=== PATIENT | female | born 1970 | race Caucasian/White ===

== ENCOUNTER 2020-06-29 07:47 | Emergency (ER) | payer OTHER, SELFPAY ==
[2020-06-29] VITALS (25 sets, daily range): BP systolic 97–118; BP diastolic 48–87; PULSE 88–115; RESP 12–18; TEMP 37.2; O2SAT 95–100
--- NOTE | ~2020-06-29 | CT_ITS ---
EXAMINATION: CT abdomen pelvis w con EXAM DATE: 06/29/2020 10:06 INDICATION: Epigastric pain and vomiting. History gastric bypass, vomiting since. TECHNIQUE: Spiral CT of the abdomen and pelvis was performed following intravenous injection of 100 m L Omnipaque 350. Axial, coronal and sagittal images were reviewed. The dose-length product (DLP) fo r this examination was 264.80 mGy-cm. The exposure was tailored according to patient size (auto mA e xposure control), and iterative reconstruction (ASIR) was used as additional dose reduction technique . There is no prior study for comparison. FINDINGS: The liver, spleen, adrenal glands and pancreas are unremarkable. There are cholecystectomy clips. Portal and splenic veins are patent. Kidneys enhance symmetrically. There is no hydronephr osis. The uterus is unremarkable. The bladder is unremarkable. There is no retroperitoneal or pel jose lymphadenopathy. The appendix is normal. There are surgical changes from intact gastric bypass surgery with mild damaso a around the anastomosis site. Gastroesophageal junction, could be from vomiting given history provid ed. There is expected amount of colonic stool. No free intraperitoneal gas. The heart is normal in size. There are no pericardial or pleural effusions. Small regions of bilateral lower lobe groun dglass opacity consistent with acute infectious process. The bones are unremarkable. IMPRESSION: 1. Gastric pouch and gastroesophageal junction mild edema, probably from emesis. 2. Small regions right basilar predominant groundglass opacities likely acute infectious process, po ssibly COVID-19. I discussed these findings, possibility of COVID-19 with Manjinder Ferrell MD at 06/29/2020 10:31 CDT . Reviewed, dictated and finalized at location B. IMPRESSION: 1. Gastric pouch and gastroesophageal junction mild edema, probably from emesi s. 2. Small regions right basilar predominant groundglass opacities likely acute infectious process, possibly COVID-19. I discussed these findings, possibility of COVID-19 with Manjinder Ferrell MD at 06/29/2020 10:31 CDT.
--- NOTE | ~2020-06-29 | XR_ITS ---
EXAMINATION: XR chest 1V portable 06/29/2020 11:10 INDICATION: Basilar infiltrates. PROCEDURE: AP portable chest COMPARISON: No prior studies for comparison. FINDINGS: The lungs are clear. The cardiomediastinal silhouette is within normal limits. There are no pleural effusions. There is no pneumothorax suspected. IMPRESSION: 1: NO ACUTE CARDIOPULMONARY DISEASE. Reviewed, dictated and finalized at location A.
--- NOTE | 2020-06-29 08:04 | ED.NAVMDI ---
HPI - Nausea/Vomiting/Diarrhea General Chief complaint: Nausea/Vomiting/Diarrhea Stated complaint: vomiting Time Seen by Provider: 06/29/20 07:50 History of Present Illness HPI Narrative: Patient is a 49-year-old female who presents ER with nausea and vomiting. She reports she has had a history of intermittent vomiting since she had a gastric bypass surgery in the past. Reports she has been vomiting over the last week and that is forceful retching. No fevers or chills or sweats. No diarrhea. No blood in her stool. Occasionally she vomits she will have a tiny amount of blood that will come up at the end. Has discomfort in her abdomen. No bloating. No previous obstructions. Related Data Home Medications Medication Instructions Recorded Confirmed Calcium 600 + D(3) 1 tablet BYMOUTH DAILY 06/29/20 alprazolam 0.5 mg PO TID PRN 06/29/20 amitriptyline 75 mg PO HS 06/29/20 cholecalciferol (vitamin D3) PO MONTHLY 06/29/20 cyanocobalamin (vitamin B-12) 1,000 mcg IM 06/29/20 ibuprofen 800 mg PO Q6H PRN 06/29/20 Allergies Allergy/AdvReac Type Severity Reaction Status Date / Time Penicillins Allergy Mild Rash Verified 06/29/20 08:10 Sulfa (Sulfonamide Allergy Mild Swelling Verified 06/29/20 08:10 Antibiotics) of Lip/Tongue/Throat vancomycin Allergy Swelling Verified 06/29/20 08:11 of Lip/Tongue/Throat Review of Systems Review of Systems: All systems reviewed & are unremarkable except as noted in HPI and below Constitutional: Constitutional: Denies chills, Denies fever(s) and Denies weakness ENT: Denies nasal congestion and Denies sore throat Cardiovascular: Cardiovascular: Denies chest pain and Denies radiating jaw, neck or arm pain Respiratory: Respiratory: Denies cough, Denies dyspnea and Denies wheezing Gastrointestinal: Gastrointestinal: Reports abdominal pain, Denies bloating, Denies diarrhea, Reports nausea and Reports vomiting PMFSH Past Medical History Medical History (Updated 06/29/20 @ 12:26 by Manjinder Ferrell MD) Chronic anemia Surgical History Surgical History (Updated 06/29/20 @ 08:06 by Manjinder Ferrell MD) Hx of gastric bypass Social History Social History (Updated 06/29/20 @ 08:06 by Manjinder Ferrell MD) Smoking status: Never smoker Exam Narrative: Exam Narrative: GENERAL: Well-appearing, well-nourished, and in no acute distress. HEAD: Normocephalic, atraumatic. ENT: Mucous membranes moist. CHEST: Clear to auscultation. No respiratory distress. HEART: Tachycardic and regular.. Normal peripheral pulses. ABDOMEN: Soft, nontender, nondistended EXTREMITIES: Normal range of motion. No edema. SKIN: Warm, dry, no rash. NEURO: Alert and oriented x3. Course Course Emergency Course: Symptoms improving. Denies COVID exposure. No shortness of breath or cough but given groundglass opacities will swab for COVID and started on azithromycin. Patient will also be started on a PPI. Vital Signs Vital signs: Vital Signs Temperature 99 F 06/29/20 07:56 Pulse Rate 105 H 06/29/20 07:56 Respiratory Rate 18 06/29/20 07:56 Blood Pressure 106/48 L 06/29/20 07:56 Pulse Oximetry 100 06/29/20 07:56 Temperature 99 F 06/29/20 09:00 Pulse Rate 99 06/29/20 11:00 Respiratory Rate 12 06/29/20 09:32 Blood Pressure 118/72 06/29/20 09:51 Pulse Oximetry 97 06/29/20 11:00 MDM - Nausea/Vomiting/Diarrhea Lab Data Result diagrams: 06/29/20 08:06 06/29/20 08:06 Labs: Lab Results 06/29/20 06/29/20 06/29/20 Range/Units 08:06 08:06 11:47 WBC 16.7 H (4.5-10.0) K/mm3 RBC 4.38 (4.2-5.4) M/mm3 Hgb 13.5 (12.0-15.0) g/dL Hct 41.2 (37.0-47.0) % MCV 94.1 (80-100) fl MCH 30.8 (26-34) pg MCHC 32.8 (32-36) g/dl RDW 12.5 (11.5-14.5) % Plt Count 447 H (150-375) k/mm3 MPV 8.7 (7.4-10.4) fl Immature Gran % (Auto) 0.4 (0-0.5) % Neut % (Auto) 86.9 H (45.5-73.1)
[2020-06-29 08:13] LABS: Basophils Absolute Auto 0.1 K/mm3 (0.0-0.1); Basophils Percent Auto 0.5 % (0.2-1.2); Eosinophils Absolute Auto 0.1 K/mm3 (0-0.3); Eosinophils Percent Auto 0.4 % (0-4.4); Hematocrit 41.2 % (37.0-47.0); Hemoglobin 13.5 g/dL (12.0-15.0); Immature Granulocyte Absolute 0.07 K/mm3 (0.00-0.031); Immature Granulocyte Percent A 0.4 % (0-0.5); Lymphocytes Absolute Auto 0.99 K/mm3 (0.9-3.2); Lymphocytes Percent Auto 5.9 % (18.3-44.2); Mean Corpuscular HGB Conc 32.8 g/dl (32-36); Mean Corpuscular Hemoglobin 30.8 pg (26-34); Mean Corpuscular Volume 94.1 fl (80-100); Mean Platelet Volume 8.7 fl (7.4-10.4); Monocytes Percent Auto 5.9 % (2.6-8.5); Neutrophils Absolute Auto 14.5 K/mm3 (1.3-6.7); Neutrophils Percent Auto 86.9 % (45.5-73.1); Platelet Count Result 447 k/mm3 (150-375); Red Blood Count 4.38 M/mm3 (4.2-5.4); Red Cell Distribution Width 12.5 % (11.5-14.5); White Blood Count 16.7 K/mm3 (4.5-10.0)
[2020-06-29 08:24] LABS: Alanine Aminotransferase 11 U/L (4-35); Albumin Level 4.3 g/dL (3.5-5.1); Alkaline Phosphatase 95 U/L (38-126); Anion Gap 7 mmol/L (8-16); Aspartate Amino Transferase 26 U/L (14-36); Bilirubin,Total 0.6 mg/dL (0.2-1.3); Blood Urea Nitrogen 10 mg/dL (7-17); Calcium 9.4 mg/dL (8.4-10.2); Carbon Dioxide 30 mmol/L (22-30); Chloride 99 mmol/L (98-107); Estimated CRCL calculation 62 ml/min; Estimated Glomerular Filt Rate > 60; Glucose 122 mg/dL (65-105); Lipase 77 U/L (23-300); Potassium 3.9 mmol/L (3.4-5.0); Sodium 136 mmol/L (137-145)
[2020-06-29] MEDS: ONDANSETRON INJ 4 MG/2 ML VIAL IV PUSH (08:25)
[2020-06-29] MEDS: MORPHINE SULFATE (*CRX) 4 MG/ML INJ IV PUSH (08:25)
[2020-06-29] MEDS: SODIUM CHLORIDE 0.9% IV 1,000 ML 999 ML IV CONT (08:25)
--- NOTE | 2020-06-29 10:00 | PC.NURSE ---
Patient to CT via stretcher.
[2020-06-30 14:17] LABS: SARS-CoV-2 RNA PCR Negative
== END 2020-06-29 12:44 | disposition home or self-care (01) ==
PROVIDERS: Emergency Provider Emergency Medicine; PCP Family Medicine
DX: D64.9 Anemia, unspecified (principal); R11.2 Nausea with vomiting, unspecified; K20.9 Esophagitis, unspecified; J18.9 Pneumonia, unspecified organism; Z20.828 Contact with and (suspected) exposure to other viral communicable diseases; Z98.84 Bariatric surgery status
CPT/HCPCS: 36415; 71045; 74177; 80053; 81025; 83690; 85025; 87635; 96361; 96374; 96375; 99284; C9803; J2270; J2405; J7030; Q9967; U0003

== ENCOUNTER 2023-01-05 17:36 | Emergency (ER) | payer OTHER, SELFPAY ==
[2023-01-05 17:45] VITALS: BP 98/64; PULSE 95; RESP 16; TEMP 37.2; O2SAT 98
--- NOTE | 2023-01-05 18:02 | ED.URI ---
HPI - URI/Sore Throat General Chief Complaint: Upper Respiratory Infection Stated Complaint: Cough/SOB Time Seen by Provider: 01/05/23 18:02 Source: patient Mode of arrival: ambulatory Limitations: no limitations History of Present Illness HPI Narrative: 52 yo F presents with c/o cough, nasal congestion, sore throat, fatigue, PND for 3 days. Afebrile. Reports mild SOB with exertion. hx of smoking 25 yrs ago. No resp distress noted. Taking OTC mucinex. all systems reviewed and negative except as noted above. Related Data Home Medications Medication Instructions Recorded Confirmed Calcium 600 + D(3) 1 tablet BYMOUTH DAILY 06/29/20 alprazolam 0.5 mg tablet 0.5 mg PO TID PRN Pain, Moderate 06/29/20 amitriptyline 75 mg tablet 75 mg PO HS 06/29/20 cholecalciferol (vitamin D3) 1,250 PO MONTHLY 06/29/20 mcg (50,000 unit) capsule cyanocobalamin (vitamin B-12) 1,000 mcg IM 06/29/20 1,000 mcg/mL injection solution Allergies Allergy/AdvReac Type Severity Reaction Status Date / Time Penicillins Allergy Mild Rash Verified 01/05/23 17:44 Sulfa (Sulfonamide Allergy Mild Swelling Verified 01/05/23 17:44 Antibiotics) of Lip/Tongue/Throat vancomycin Allergy Swelling Verified 01/05/23 17:44 of Lip/Tongue/Throat Review of Systems Review of Systems: CONSTITUTIONAL: Denies fever, chills, or sweats. reports fatigue. EYES: Denies visual changes, redness, or discharge. ENT: reports rhinorrhea, congestion, sore throat. Denies otalgia. CARDIOVASCULAR: Denies chest pain, palpitations, or edema. RESPIRATORY: Reports cough and dyspnea with exertion. GASTROINTESTINAL: Denies abdominal pain, nausea, vomiting, or diarrhea. GENITOURINARY: Denies dysuria or hematuria. SKIN: Denies rash or itching. MUSCULOSKELETAL: Denies back pain, joint pain, or myalgia. NEUROLOGIC: Denies headache, numbness, or weakness. PSYCHIATRIC: Denies anxiety or depression. All other systems reviewed are negative, except as documented in HPI. [facility] Past Medical History Medical History (Updated 01/05/23 @ 18:12 by Tamika Vasquez NP) Chronic anemia Surgical History Surgical History (Updated 06/29/20 @ 08:06 by Manjinder Ferrell MD) Hx of gastric bypass Social History Social History (Updated 06/29/20 @ 08:06 by Manjinder Ferrell MD) Smoking status: Never smoker Comments At time of signature, agree with nursing past medical, surgical, social and family history. There is no relevant family history pertinent to the presenting complaint. Exam Narrative: GENERAL: This is a well-nourished, well-developed patient, in no apparent distress. HEAD: normocephalic, atraumatic. EYES: PERRL. Sclera clear/white. Vision is grossly intact. EARS: External ears normal, auditory canals clear and without drainage, TMs normal without perforation. Hearing grossly intact. NOSE: External nose normal with Clear nasal drainage. No swelling Or erythema to nares. THROAT: Mucous membranes moist, mild erythema to posterior pharynx with clear postnasal drainage. NECK: Neck supple, non-tender without lymphadenopathy, masses or thyromegaly. CARDIOVASCULAR: Regular rate and rhythm without murmurs, gallops, or rubs. RESPIRATORY: Clear to auscultation. Breath sounds equal bilaterally. No wheezes, rales, or rhonchi. SKIN: warm, Dry, intact with no suspicious lesions or rash, good texture and turgor. NEURO: awake, alert, and oriented to person, place and time. There were no obvious focal neurologic abnormalities. EXTREMITIES: No joint tenderness, effusion, or edema noted. Course Course Level of Care: Express Care Visit Vital Signs Vital signs: Vital Signs Temperature 37.2 C 01/05/23 17:45 Pulse Rate 95 01/05/23 17:45 Respiratory Rate 16 01/05/23 17:45 Blood Pressure 98/64 L 01/05/23 17:45 Pulse Oximetry 98 01/05/23 17:45 Oxygen Delivery Room Air 01/05/23 17:45 Temperature 37.2 C 01/05/23 17:45 Pulse Rate
== END 2023-01-05 18:16 | disposition home or self-care (01) ==
PROVIDERS: Emergency Provider Nurse Practitioner Family
DX: J06.9 Acute upper respiratory infection, unspecified (principal); D64.9 Anemia, unspecified; Z98.84 Bariatric surgery status; Z87.891 Personal history of nicotine dependence
CPT/HCPCS: 99213; G0463